=== PATIENT | female | born 1985 | race Caucasian/White ===

== ENCOUNTER 2016-05-26 08:55 | Emergency (ER) | payer MEDICAID ==
--- NOTE | 2016-05-26 09:31 | ED Physician Chart ---
Chief Complaint/HPI - Patient Information Date Seen:: 05/26/16 Time Seen:: 09:20 Chief Complaint:: dysuria History of Present Illness:: Patient has had dysuria for 2-1/2 weeks. Patient had hematuria noted on the toilet paper after she wiped 2 days ago. 2 days ago she also had a fever of 103 . Patient has had no vomiting but she has had nausea and diarrhea. Allergies:: Allergies Allergy/AdvReac Type Severity Reaction Status Date / Time No Known Allergies Allergy Verified 05/26/16 09:00 Historian:: Patient Review:: Nurse's Note Reviewed Review of Systems - Review of Systems General/Constitutional: Fever Skin: No skin lesions Head: No headache Eyes: No loss of vision ENT: No earache, No sore throat Neck: No neck pain Cardio Vascular: No chest pain Pulmonary: No SOB, No cough GI: Nausea, No vomiting, Diarrhea G/U: Dysuria, Hematuria Musculoskeletal: No bone or joint pain, No muscle pain Endocrine: No polyuria, No polydipsia Psychiatric: No prior psych history Hematopoietic: No bruising, No lymphadenopathy Allergic/Immuno: No urticaria, No angioedema Neurological: No syncope, No weakness, No headache Past Medical History - Past Medical History Past Medical History: No significant medical hx Family History: Heart disease, Diabetes Melitus, HTN Social History: Other (smokes a cigarette every few months and drinks alcohol occasionally) Surgical History: other (D&C) Psychiatricy History: None Family Medical History - Family Member Mother History Unknown: Yes Ethnicity: Living Status: Still Living Hx Family Cancer: No Hx Family Coronary Artery Disease: No Hx Family Congestive Heart Failure: No Hx Family Hypertension: No Hx Family Stroke: No Hx Family Diabetes: Yes Hx Family Seizures: No Hx Family Dementia: No Hx Family AIDS: No Hx Family HIV: No Hx Family COPD: No Hx Family Hepatitis: No Hx Family Psychiatric Problems: No Hx Family Tuberculosis: No Physical Exam - Physical Examination General/Constitutional: Well-developed, well-nourished, Alert, No distress Head: Atraumatic Eyes: Lids, conjuctiva normal, PERRL Skin: Nl inspection, No rash ENMT: External ears, nose nl, TM canals nl, Nasal exam nl, Lips, teeth, gums nl , Oropharynx nl, Tonsils nl Neck: No nuchal rigidity Respiratory: Nl effort/Exclusion, Clear to Auscultation Cardio Vascular: RRR, No murmur, gallop, rubs, NL S1 S2 GI: No organomegaly, No hernia, Normal BS's, Nondistended, No mass/bruits Other GI comments:: Lower abdominal tenderness : No CVA tenderness Extremities: Normal digits & nails Neuro/Psych: Alert/oriented, No focal deficits Misc: Normal back, No paraspinal tenderness Labs/Radiology/EKG Results - Lab Results Results: Laboratory Results - last 24 hr 05/26/16 05/26/16 09:00 09:00 Urine Source [place] Urine Color YELLOW Urine Clarity CLOUDY H Urine pH 6.0 Ur Specific [place] 1.025 Urine Protein 100 H Urine Glucose (UA) NEGATIVE Urine Ketones TRACE Urine Blood MODERATE H Urine Nitrate NEGATIVE Urine Bilirubin NEGATIVE Urine Urobilinogen 2.0 Ur Leukocyte Esterase LARGE H Urine RBC 5-10 H Urine WBC 50-100 H Ur Epithelial Cells FEW Urine Bacteria MODERATE Urine Test NEGATIVE ED Septic Shock - . Is Septic Shock (SBP<90, OR Lactate>4 mmol\L) present?: No Reassessment (Disposition) - Reassessment Reassessment:: Patient may have a cystitis only but will cover for a pyelonephritis since patient had fever 2 days ago. Reassessment Condition:: Unchanged - Diagnosis Diagnosis:: Urinary tract infection - Aftercare/Follow up Instructions Aftercare/Follow-Up Instructions:: Refer to Discharge Instructions Medication Prescribed:: Levaquin 750 mg daily for 7 days; first dose to be given in the emergency department - Patient Disposition Discharge/Transfer:: Home Condition at Disposition:: Stable, Unchanged
[2016-05-26 09:49] LABS: URINE BILIRUBIN NEGATIVE (NEGATIVE); URINE BLOOD MODERATE (NEGATIVE); URINE COLOR YELLOW; URINE GLUCOSE (UA) NEGATIVE (NEGATIVE); URINE KETONE TRACE mg/dL (NEGATIVE)
[2016-05-26 09:50] LABS: URINE PROTEIN 100 mg/dL (NEGATIVE)
[2016-05-26 10:01] LABS: URINE BACTERIA MODERATE /hpf (NONE SEEN); URINE EPITHELIAL CELLS FEW /lpf (FEW); URINE WBC 50-100 /hpf (0-5)
== END 2016-05-26 10:35 | disposition home or self-care (01) ==
LOC: ER 08:55
DX: N39.0 Urinary tract infection, site not specified (principal); F17.210 Nicotine dependence, cigarettes, uncomplicated
CPT/HCPCS: 81001-TC; 81025-TC; 87086-90; Z7502; Z7610

== ENCOUNTER 2017-07-15 12:21 | Emergency (ER) | payer MEDICAID ==
--- NOTE | 2017-07-15 12:52 | ED Physician Chart ---
ED Chief Complaint/HPI - Patient Information Date Seen:: 07/15/17 Time Seen:: 12:37 Chief Complaint:: left leg pain History of Present Illness:: THIS IS A 32 YO FEMALE WITH LEFT LOWER EXTREMITY PAIN AND SWELLING ON AND OFF WHICH HAS INCREASED WHILE STANDING A LOTS AT WORK. SHE DENIES ANY RECENT TRAUMA OR OLD TRAUMA. SHE STATES THAT SHE HAS HAD LOWER BACK PROBLEMS OVER THE LAST 10 YRS. SHE TAKES MOTRIN WHICH HAS HELP SOME BUT SHE IS CONCERNED ABOUT THE INCREASE PAIN. Allergies:: Allergies Allergy/AdvReac Type Severity Reaction Status Date / Time No Known Allergies Allergy Verified 05/26/16 09:00 Vitals:: Vital Signs - 8 hr 07/15/17 12:34 Temp 97.8 F HR 84 RR 16 BP 125/73 O2 Sat % 99 Historian:: Patient Review:: Nurse's Note Reviewed, Old Chart Reviewed ED Review of Systems - Review of Systems General/Constitutional: No fever, No chills, No weight loss, No weakness, No diaphoresis, No edema, No loss of appetite Skin: No skin lesions, No rash, No bruising Head: No headache, No light-headedness Eyes: No loss of vision, No pain, No diplopia ENT: No earache, No nasal drainage, No sore throat, No tinnitus Neck: No neck pain, No swelling, No thyromegaly, No stiffness, No mass noted Cardio Vascular: No chest pain, No palpitations, No PND, No orthopnea, No edema Pulmonary: No SOB, No cough, No sputum, No wheezing GI: No nausea, No vomiting, No diarrhea, No pain, No melena, No hematochezia, No constipation, No hematemesis G/U: No dysuria, No frequency, No hematuria Musculoskeletal: No bone or joint pain, Back pain, No muscle pain, Other (LEFT THIGH AND LOWER LEG VARICOSE VEIN AND MILD SWELLING NOTED.) Endocrine: No polyuria, No polydipsia Psychiatric: No prior psych history, No depression, No anxiety, No suicidal ideation Hematopoietic: No bruising, No lymphadenopathy Allergic/Immuno: No urticaria, No angioedema Neurological: No syncope, No focal symptoms, No weakness, No paresthesia, No headache, No seizure, No dizziness, No confusion, No vertigo ED Past Medical History - Past Medical History Obtainable: Yes Past Medical History: Other (BACK PAIN) Family History: None Social History: Non Smoker, No Alcohol, No Drug Use, Employed Surgical History: None Psychiatricy History: None Medication: Reviewed Family Medical History - Family Member Mother History Unknown: Yes Ethnicity: Living Status: Still Living Hx Family Cancer: No Hx Family Coronary Artery Disease: No Hx Family Congestive Heart Failure: No Hx Family Hypertension: No Hx Family Stroke: No Hx Family Diabetes: Yes Hx Family Seizures: No Hx Family Dementia: No Hx Family AIDS: No Hx Family HIV: No Hx Family COPD: No Hx Family Hepatitis: No Hx Family Psychiatric Problems: No Hx Family Tuberculosis: No ED Physical Exam - Physical Examination General/Constitutional: Awake, Well-developed, well-nourished, Alert, No distress, GCS 15, Non-toxic appearing, Ambulatory Head: Atraumatic Eyes: Lids, conjuctiva normal, PERRL, EOMI Skin: Nl inspection, No rash, No skin lesions, No ecchymosis, Well hydrated, No lymphadenopathy ENMT: External ears, nose nl, Nasal exam nl, Lips, teeth, gums nl Neck: Nontender, Full ROM w/o pain, No JVD, No nuchal rigidity, No bruit, No mass, No stridor Respiratory: Nl effort/Exclusion, Clear to Auscultation, No Wheeze/Rhonchi/Rales Cardio Vascular: RRR, No murmur, gallop, rubs, NL S1 S2 GI: No tenderness/rebounding/guarding, No organomegaly, No hernia, Normal BS's, Nondistended, No mass/bruits, No McBurney tenderness : No CVA tenderness Extremities: Full ROM, normal strength in all extremities, No edema, Normal digits & nails Other Extremities comments:: THERE IS TENDERNESS OF THE LEFT THIGH AND LOWER LEG WITH VARICOSE VEINS NOTED. THERE IS INCREASE TENDERNESS OF THE POPLITEAL AREA. Neuro/Psych: Alert/oriented, DTR's symmetric, Normal sensory exam, Normal motor strength, Judgement/insight normal, Mood normal, Normal gait, No focal deficits Misc: Normal back, No paraspinal tenderness ED Labs/Radiology/EKG Results - Lab Results Results: Abnormal Lab Results 07/15/17 07/15/17 07/15/17 12:53 12:53 12:53 WBC 7.6 RBC 4.11 Hgb 13.1 Hct 38.2 L MCV 92.8 MCH 32.0 H MCHC Differential 34.4 RDW 11.4 L Plt Count 206 MPV 8.1 Neutrophils % 62.4 Lymphocytes % 28.1 Monocytes % 8.1 Eosinophils % 1.0 Basophils % 0.4 PT 9.4 L INR 0.90 PTT (Actin FS) 26.8 Sodium 136 Potassium 3.9 Chloride 105 Carbon Dioxide 25.9 Anion Gap 9.0 BUN 19 Creatinine 0.6 Est GFR ( Amer) > 60.0 Est GFR (Non-Af Amer) > 60.0 BUN/Creatinine Ratio 31.7 Glucose 102 Calcium 9.1 Total Bilirubin 0.4 AST 13 ALT 9 Alkaline Phosphatase 70 Total Protein 7.4 Albumin 4.5 Globulin 2.9 Albumin/Globulin Ratio 1.6 TSH Urine Source Urine Color Urine Clarity Urine pH Ur Specific [place] Urine Protein Urine Glucose (UA) Urine Ketones Urine Blood Urine Nitrate Urine Bilirubin Urine Urobilinogen Ur Leukocyte Esterase Urine RBC Urine WBC Ur Epithelial Cells Urine Bacteria Urine Mucus Urine Test POC Ur Test 07/15/17 07/15/17 07/15/17 12:53 12:55 12:55 WBC RBC Hgb Hct MCV MCH MCHC Differential RDW Plt Count MPV Neutrophils % Lymphocytes % Monocytes % Eosinophils % Basophils % PT INR PTT (Actin FS) Sodium Potassium Chloride Carbon Dioxide Anion Gap BUN Creatinine Est GFR ( Amer) Est GFR (Non-Af Amer) BUN/Creatinine Ratio Glucose Calcium Total Bilirubin AST ALT Alkaline Phosphatase Total Protein Albumin Globulin Albumin/Globulin Ratio TSH 1.16 Urine Source CLEAN C Urine Color YELLOW Urine Clarity TURBID H Urine pH 6.5 Ur Specific [place] 1.025 Urine Protein NEGATIVE Urine Glucose (UA) NEGATIVE Urine Ketones NEGATIVE Urine Blood SMALL H Urine Nitrate NEGATIVE Urine Bilirubin NEGATIVE Urine Urobilinogen 0.2 Ur Leukocyte Esterase NEGATIVE Urine RBC 2-5 Urine WBC 2-5 Ur Epithelial Cells MODERATE Urine Bacteria 2+ H Urine Mucus FEW Urine Test NEGATIVE POC Ur Test 07/15/17 13:00 WBC RBC Hgb Hct MCV MCH MCHC Differential RDW Plt Count MPV Neutrophils % Lymphocytes % Monocytes % Eosinophils % Basophils % PT INR PTT (Actin FS) Sodium Potassium Chloride Carbon Dioxide Anion Gap BUN Creatinine Est GFR ( Amer) Est GFR (Non-Af Amer) BUN/Creatinine Ratio Glucose Calcium Total Bilirubin AST ALT Alkaline Phosphatase Total Protein Albumin Globulin Albumin/Globulin Ratio TSH Urine Source Urine Color Urine Clarity Urine pH Ur Specific [place] Urine Protein Urine Glucose (UA) Urine Ketones Urine Blood Urine Nitrate Urine Bilirubin Urine Urobilinogen Ur Leukocyte Esterase Urine RBC Urine WBC Ur Epithelial Cells Urine Bacteria Urine Mucus Urine Test POC Ur Test Negative - Radiology Results Results: ct scan of the lumbosacral spine = nad ultrasound of the left lower extremities = no dvt ED Assessment - Assessment General Assessment: urinary tract infection back and leg pain ED Septic Shock - . Is Septic Shock (SBP<90, OR Lactate>4 mmol\L) present?: No - <6hrs of presentation: Vital Signs: Vital Signs - 8 hr 07/15/17 12:34 Temp 97.8 F HR 84 RR 16 BP 125/73 O2 Sat % 99 ED Reassessment (Disposition) - Reassessment Reassessment Condition:: Unchanged - Aftercare/Follow up Instructions Aftercare/Follow-Up Instructions:: Counseled pt regarding lab results/diagnosis & need follow up, Refer to Discharge Instructions, Counseled pt & family regarding lab results/diagnosis & need follow up - Patient Disposition Discharge/Transfer:: Home Condition at Disposition:: Improved ED Discharge Plan - Patient Disposition Admit/Discharge/Transfer: PT DISCHARGED HOME Condition at Disposition: Improved
[2017-07-15 13:01] LABS: % BASOPHILS 0.4 % (0.0-2.0); % LYMPHOCYTES 28.1 % (20.0-50.0); % MONOCYTES 8.1 % (2.0-10.0); % NEUTROPHILS 62.4 % (40.0-80.0); EOSINOPHILE ABSOLUTE 0.1 Th/cmm (0.1-0.4); HEMATOCRIT 38.2 % (41.0-60); HEMOGLOBIN 13.1 gm/dL (12-16); LYMPHOCYTE ABSOLUTE 2.1 Th/cmm (1.5-3.0); MEAN CELL VOLUME 92.8 fl (81-100); MEAN CORPUSCULAR HGB CONC 34.4 pg (28.0-36.0); MEAN PLATELET VOLUME 8.1 fl; MONOCYTE ABSOLUTE 0.6 Th/cmm (0.3-1.0); NEUTROPHILE ABSOLUTE 4.8 Th/cmm (1.8-8.0); PLATELET COUNT 206 Th/cmm (150-400); RED BLOOD COUNT 4.11 Mil/cmm (3.80-5.10); RED CELL DISTRIBUTION WIDTH 11.4 % (11.5-20.0); WHITE BLOOD COUNT 7.6 Th/cmm (4.8-10.8)
[2017-07-15 13:13] LABS: INR 0.9 (0.5-1.4); PROTHROMBIN TIME (TEST) 9.4 SECONDS (9.5-11.5)
[2017-07-15 13:15] LABS: ALB/GLOB RATIO 1.6 (1.0-1.8); ALBUMIN 4.5 gm/dL (3.7-5.3); ALKALINE PHOSPHATASE 70 U/L (34-104); BILIRUBIN,TOTAL 0.4 mg/dL (0.3-1.0); BUN - UREA NITROGEN 19 mg/dL (7-25); CALCIUM SERUM 9.1 mg/dL (8.6-10.3); CARBON DIOXIDE 25.9 mEq/L (21.0-31.0); CHLORIDE 105 mEq/L (98-107); CREATININE - SERUM 0.6 mg/dL (0.6-1.2); GFR AFRICAN-AMERICAN > 60.0 ml/min (>90); GFR NON AFRICAN-AMERICAN > 60.0 ml/min; GLUCOSE 102 mg/dL (70-105); POTASSIUM SERUM 3.9 mEq/L (3.5-5.1); SGOT 13 U/L (13-39); SGPT/ALT 9 U/L (7-52); SODIUM SERUM 136 mEq/L (136-145); TOTAL PROTEIN,SERUM 7.4 gm/dL (6.0-8.3)
[2017-07-15 13:28] LABS: URINE MICROSCOPIC INDICATED? YES; URINE SOURCE CLEAN C
[2017-07-15 13:34] LABS: URINE BILIRUBIN NEGATIVE (NEGATIVE); URINE BLOOD SMALL (NEGATIVE); URINE GLUCOSE (UA) NEGATIVE (NEGATIVE); URINE KETONE NEGATIVE (NEGATIVE); URINE LEUKOCYTE ESTERASE NEGATIVE (NEGATIVE); URINE NITRATE NEGATIVE (NEGATIVE); URINE PH 6.5 (4.6 - 8.0); URINE PROTEIN NEGATIVE (NEGATIVE); URINE UROBILINOGEN 0.2 E.U./dL (0.2 - 1.0)
[2017-07-15 13:53] LABS: URINE CLARITY TURBID (CLEAR); URINE COLOR YELLOW
[2017-07-15 14:01] LABS: URINE BACTERIA 2+ /hpf (NONE SEEN); URINE EPITHELIAL CELLS MODERATE /lpf (FEW)
--- NOTE | 2017-07-16 10:33 | Diagnostic Imaging Report ---
Exam: CT examination lumbar sacral spine. HISTORY: Back pain. Total DLP equals 839 CTDI equals 2.9 Findings: Multiple contiguous thin section of the lumbar sacral spine were obtained in axial plane with coronal sagittal reconstruction. No prior studies available comparison. The study demonstrates no evidence of fracture dislocation. There is no evidence of spondylolysis or listhesis. No prevertebral soft tissue swelling is noted. IMPRESSION: Normal exam of the lumbar sacral spine. If clinically indicated MRI examination might be helpful.
--- NOTE | 2017-07-16 10:36 | Diagnostic Imaging Report ---
Exam: Left lower extremity ultrasound HISTORY: Deep venous thrombosis. Findings: Real-time ultrasound examination of left lower extremity was performed utilizing color Doppler technique. The study demonstrates normal compressibility and augmentation of deep venous system throughout IMPRESSION: No evidence of deep venous thrombosis left lower extremity.
== END 2017-07-15 15:27 | disposition home or self-care (01) ==
LOC: ER 12:21
DX: N39.0 Urinary tract infection, site not specified (principal); M54.9 Dorsalgia, unspecified; M79.652 Pain in left thigh; M79.662 Pain in left lower leg
CPT/HCPCS: 99285; 96372; 93971; 72131; 36415; 84443; 85025; 85610; 85730; 87086; 81001; 81025 ×2; 80053; J0696

== ENCOUNTER 2017-12-03 13:34 | Emergency (ER) | payer MEDICAID ==
--- NOTE | 2017-12-03 14:19 | ED Physician Chart ---
ED Chief Complaint/HPI - Patient Information Date Seen:: 12/03/17 Time Seen:: 13:56 Chief Complaint:: Left ear pain History of Present Illness:: Left ear pain in a chronic gum chewer who subluxes her jaw in front of me to "make it feel better" temporarily. Allergies:: Allergies Allergy/AdvReac Type Severity Reaction Status Date / Time No Known Allergies Allergy Verified 12/03/17 13:51 Vitals:: Vital Signs - 8 hr 12/03/17 13:56 Temp 98.7 F HR 96 RR 18 BP 107/65 O2 Sat % 98 Historian:: Patient Review:: Nurse's Note Reviewed ED Review of Systems - Review of Systems General/Constitutional: No fever, No chills, No weight loss, No weakness, No diaphoresis, No edema, No loss of appetite Skin: No skin lesions, No rash, No bruising Head: No headache, No light-headedness Eyes: No loss of vision, No pain, No diplopia ENT: Earache, No nasal drainage, No sore throat, No tinnitus Neck: No neck pain, No swelling, No thyromegaly, No stiffness, No mass noted Cardio Vascular: No chest pain, No palpitations, No PND, No orthopnea, No edema Pulmonary: No SOB, No cough, No sputum, No wheezing GI: No nausea, No vomiting, No diarrhea, No pain, No melena, No hematochezia, No constipation, No hematemesis G/U: No dysuria, No frequency, No hematuria Musculoskeletal: No bone or joint pain, No back pain, No muscle pain Endocrine: No polyuria, No polydipsia Psychiatric: No prior psych history, No depression, No anxiety, No suicidal ideation Hematopoietic: No bruising, No lymphadenopathy Allergic/Immuno: No urticaria, No angioedema Neurological: No syncope, No focal symptoms, No weakness, No paresthesia, No headache, No seizure, No dizziness, No confusion, No vertigo ED Past Medical History - Past Medical History Obtainable: Yes Past Medical History: No significant medical hx Family Medical History - Family Member Mother History Unknown: Yes Ethnicity: Living Status: Still Living Hx Family Cancer: No Hx Family Coronary Artery Disease: No Hx Family Congestive Heart Failure: No Hx Family Hypertension: Yes Hx Family Stroke: No Hx Family Diabetes: Yes Hx Family Seizures: No Hx Family Dementia: No Hx Family AIDS: No Hx Family HIV: No Hx Family COPD: No Hx Family Hepatitis: No Hx Family Psychiatric Problems: No Hx Family Tuberculosis: No ED Physical Exam - Physical Examination General/Constitutional: Awake, Well-developed, well-nourished, Alert, No distress, GCS 15, Non-toxic appearing, Ambulatory Head: Atraumatic Eyes: Lids, conjuctiva normal, PERRL Skin: Nl inspection, No rash, No skin lesions, No ecchymosis, Well hydrated, No lymphadenopathy ENMT: External ears, nose nl, TM canals nl, Nasal exam nl, Lips, teeth, gums nl , Oropharynx nl, Tonsils nl Other ENMT comments:: pain and clicking on the left when I placed my finger in her left EAC. No pain with manipulation of the outer ears. smooth molars with evidence of grinding. Neck: Nontender, No nuchal rigidity, No stridor Respiratory: Nl effort/Exclusion, Clear to Auscultation Cardio Vascular: RRR, No murmur, gallop, rubs, NL S1 S2 Neuro/Psych: Alert/oriented, Normal sensory exam, Normal motor strength, Judgement/insight normal, Mood normal, Normal gait, No focal deficits Misc: Normal back ED Assessment - Assessment General Assessment: refused Toradol and Solumedrol shots that I offered to her. ED Septic Shock - . Is Septic Shock (SBP<90, OR Lactate>4 mmol\\L) present?: No - <6hrs of presentation: Vital Signs: Vital Signs - 8 hr 12/03/17 13:56 Temp 98.7 F HR 96 RR 18 BP 107/65 O2 Sat % 98 ED Reassessment (Disposition) - Reassessment Reassessment Condition:: Unchanged - Diagnosis Diagnosis:: Left sided TMJ - Aftercare/Follow up Instructions Aftercare/Follow-Up Instructions:: Refer to Discharge Instructions Notes:: follow up with your dentist. no gum chewing. edentulous diet. Medication Prescribed:: tylenol and motrin (since patient states she is not ). - Patient Disposition Discharge/Transfer:: Home Condition at Disposition:: Stable, Unchanged
== END 2017-12-03 14:20 | disposition home or self-care (01) ==
LOC: ER 13:34
DX: M26.602 Left temporomandibular joint disorder, unspecified (principal); H92.02 Otalgia, left ear

== ENCOUNTER 2018-07-30 19:42 | Emergency (ER) | payer MEDICAID ==
--- NOTE | 2018-07-30 20:33 | ED Physician Chart ---
ED Chief Complaint/HPI - Patient Information Date Seen:: 07/30/18 Time Seen:: 20:25 Chief Complaint:: Low back pain for 3 weeks. History of Present Illness:: Pt came in by private auto because of low back pain for about 3 weeks. No known injury. Pt was evaluated at an urgent care clinic about a week ago. Her low back has improved. Pain is characterized as constant. It can be aggravated with bending forward. No known relieving factors. No known recent injury. However, pt states that she has been on her feet for prolonged period and has engaged in much straining activities prior to onset of her low back pain. No weakness or numbness. No urinary or fecal incontinence or retention. No LE weakness or numbness. Last analgesic use with ibuprofen at 5 pm yesterday. Allergies:: Allergies Allergy/AdvReac Type Severity Reaction Status Date / Time No Known Allergies Allergy Verified 07/30/18 20:03 Vitals:: Vital Signs - 8 hr 07/30/18 19:50 Temp 97.7 F HR 85 RR 18 BP 106/63 O2 Sat % 100 Historian:: Patient Family MD/PCP:: unknown. LMP:: 06/17/2018 Review:: Nurse's Note Reviewed ED Review of Systems - Review of Systems General/Constitutional: No fever, No weight loss, No weakness, No edema, No loss of appetite Skin: No rash, No bruising Head: No headache, No light-headedness Eyes: No loss of vision, No pain, No diplopia ENT: No earache, No nasal drainage, No sore throat, No tinnitus Neck: No neck pain, No swelling, No stiffness, No mass noted Cardio Vascular: No chest pain Pulmonary: No SOB, No cough GI: No nausea, No vomiting, No pain G/U: No dysuria, No frequency, No hematuria Np: No vaginal discharge, No abnormal vaginal bleed Musculoskeletal: Back pain Psychiatric: No prior psych history Allergic/Immuno: No urticaria, No angioedema Neurological: No syncope, No focal symptoms, No weakness, No paresthesia, No headache, No confusion ED Past Medical History - Past Medical History Past Medical History: No significant medical hx Family History: Diabetes Melitus, HTN, Cancer Social History: Non Smoker, Alcohol (occasional use.), No Drug Use, Single, Employed, Other (lives with the mother of her boyfriend.) Employment:: customers service. Surgical History: None Psychiatricy History: None Medication: Reviewed Family Medical History - Family Member Mother History Unknown: Yes Ethnicity: Living Status: Still Living Hx Family Cancer: No Hx Family Coronary Artery Disease: No Hx Family Congestive Heart Failure: No Hx Family Hypertension: Yes Hx Family Stroke: No Hx Family Diabetes: Yes Hx Family Seizures: No Hx Family Dementia: No Hx Family AIDS: No Hx Family HIV: No Hx Family COPD: No Hx Family Hepatitis: No Hx Family Psychiatric Problems: No Hx Family Tuberculosis: No ED Physical Exam - Physical Examination General/Constitutional: Awake, Well-developed, well-nourished (female), Alert, No distress, Non-toxic appearing, Ambulatory Other Gen/Cons comments:: Breathes comfortably, speaks clearly, and interacts appropriately. Head: Atraumatic Eyes: Lids, conjuctiva normal, PERRL, EOMI Skin: Nl inspection, No skin lesions, Well hydrated, No lymphadenopathy ENMT: External ears, nose nl, Nasal exam nl, Oropharynx nl Neck: Nontender, Full ROM w/o pain, No JVD, No nuchal rigidity, No mass Respiratory: Nl effort/Exclusion, Clear to Auscultation Cardio Vascular: RRR, No murmur, gallop, rubs GI: No tenderness/rebounding/guarding, No organomegaly, Normal BS's, Nondistended, No mass/bruits Other GI comments:: abdomen is soft. : No CVA tenderness Extremities: No tenderness or effusion, No edema Neuro/Psych: Alert/oriented (x 3. ), DTR's symmetric, Normal sensory exam, Normal motor strength, Judgement/insight normal, Mood normal, Normal gait, No focal deficits Other Neuro/Psych comments:: Negative SLR's bilaterally. Other Misc comments:: Low back has mild tenderness at low lumbar region. No gross deformity, erythema , ecchymosis, swelling, or open wounds. ED Septic Shock - . Is Septic Shock (SBP<90, OR Lactate>4 mmol\L) present?: No - <6hrs of presentation: Vital Signs: Vital Signs - 8 hr 07/30/18 19:50 Temp 97.7 F HR 85 RR 18 BP 106/63 O2 Sat % 100 ED Reassessment (Disposition) - Reassessment Reassessment:: 2110 Pt overall remains stable. Pt ambulates swiftly and steadily without assistance without difficulty. Pain medication was offered, but pt declined. Pt requests to go home now and does not want any X-ray and lab studies done. Pt prefers to follow with PCP Dr. Obrien. - Diagnosis Diagnosis:: Lumbar strain by hx. Stable and improved. - Aftercare/Follow up Instructions Aftercare/Follow-Up Instructions:: Refer to Discharge Instructions Notes:: Bed rest for today. May take Tylenol 500 mg tab one tab po q6h prn pain. Warm compress to be applied to affected lumbar region x 15 minutes every 2 hours. Back hygiene instructions given. F/U with PCP Dr. Obrien in one day for recheck. Return to ER immediately if condition worsens or if any further questions/problems. - Patient Disposition Discharge/Transfer:: Home Time:: 21:15 Condition at Disposition:: Stable, Improved
== END 2018-07-30 21:21 | disposition home or self-care (01) ==
LOC: ER 19:42
DX: S39.012A Strain of muscle, fascia and tendon of lower back, initial encounter (principal); X58.XXXA Exposure to other specified factors, initial encounter; Y93.89 Activity, other specified; Y92.89 Other specified places as the place of occurrence of the external cause; Y99.8 Other external cause status
CPT/HCPCS: Z7502